=== PATIENT | male | born 1970 | race Caucasian/White ===

== ENCOUNTER 2024-09-11 19:41 | Observation (INO) | payer OTHER ==
[~2024-09-11] VITALS: Ht 172.7 cm; Wt 99.8 kg
[~2024-09-11 19:41] MED LIST: AMOCLA875; ASPI325; HYDACE5; HYDACE5 PO; NAPR500 PO; NITR.6SL SL; OXYACE5T PO
[2024-09-11] MEDS ORDERED: Morphine Sulfate 4 MG/1 ML Injection IV ONE (20:00)
[2024-09-11] MEDS ORDERED: Ondansetron HCl 2 MG / ML 2ML Vial IV ONE (20:00)
[2024-09-11 20:01] LABS: BASOPHILS PERCENT AUTO 1 % (0-2); EOSINOPHILS ABSOLUTE AUTO 0.14 K/mm3 (0.00-0.68); EOSINOPHILS PERCENT AUTO 2 % (0-6); Hematocrit 43.3 % (37.0-53.0); Hemoglobin 15.1 g/dL (13.5-17.5); IMMATURE GRAN ABSOLUTE AUTO 0.05 K/mm3 (0.00-0.10); IMMATURE GRAN PERCENT AUTO 1 % (0-1); LYMPHOCYTES ABSOLUTE AUTO 3.72 K/mm3 (0.84-5.20); LYMPHOCYTES PERCENT AUTO 41 % (21-46); MONOCYTES ABSOLUTE AUTO 0.68 K/mm3 (0.16-1.47); MONOCYTES PERCENT AUTO 7 % (4-13); Mean Corpuscular HGB 32.5 pg (26.0-34.0); Mean Corpuscular HGB Conc 34.9 g/dL (31.5-36.5); Mean Corpuscular Volume 93 fL (80-100); Mean Platelet Volume 9.6 fL (9.1-12.4); NEUTROPHILS ABSOLUTE AUTO 4.49 K/mm3 (1.96-9.15); NEUTROPHILS PERCENT AUTO 49 % (41-73); Platelet Count 346 K/mm3 (150-400); RDW Coefficient Variation 12.5 % (11.7-14.2); RDW Standard Deviation 42.7 fL (35.1-46.3); Red Blood Cell Count 4.64 M/mm3 (4.30-5.90); White Blood Cell Count 9.18 K/mm3 (4.00-11.30)
[2024-09-11 20:13] LABS: Albumin, Blood 4.1 g/dL (3.4-5.0); Albumin/Globulin Ratio 1.2 (0.8-1.8); Bilirubin, Total 0.3 mg/dL (0.1-1.0); Bun/Creatinine Ratio 20.5 (12.0-20.0); Calcium, Blood 8.6 mg/dL (8.5-10.1); Creatinine, Blood 0.83 mg/dL (0.60-1.20); Globulin, Blood 3.5 g/dL (2.2-4.0); Potassium, Blood 3.6 mmol/L (3.5-5.5); Total Protein, Blood 7.6 g/dL (6.4-8.2)
[2024-09-11 20:19] LABS: International Normalized Ratio 0.96; Prothrombin Time Results 10.3 Sec (9.7-11.5)
[2024-09-11] MEDS ORDERED: Diphth,Pertuss(Acell),Tet Vac 0.5 ML VIAL IM ONE (21:20)
[2024-09-11] MEDS ORDERED: FentaNYL Citrate 50 MCG/ML 2 ML Injection IV PRN (23:15)
[2024-09-11] MEDS ORDERED: ChlordiazePOXIDE 25 MG Cap PO PRN (23:15)
[2024-09-11] MEDS ORDERED: LORazepam 2 MG/ML 1ML Injection IV PRN (23:15)
[2024-09-11] MEDS ORDERED: Ondansetron HCl 2 MG / ML 2ML Vial IV PRN (23:15)
[2024-09-11] MEDS ORDERED: NS 1,000 ML IV ONE (23:15)
[2024-09-12] MEDS ORDERED: Thiamine HCl 100 MG in NS 50 ML IV SCH (00:04)
[2024-09-12] MEDS ORDERED: Potassium Chloride 40 MEQ in NS 250 ML IV ONE (00:05)
[2024-09-12 01:17] LABS: BASOPHILS ABSOLUTE AUTO 0.05 K/mm3 (0.00-0.23); BASOPHILS PERCENT AUTO 1 % (0-2); EOSINOPHILS ABSOLUTE AUTO 0.05 K/mm3 (0.00-0.68); EOSINOPHILS PERCENT AUTO 1 % (0-6); Hematocrit 31.3 % (37.0-53.0); Hemoglobin 10.4 g/dL (13.5-17.5); IMMATURE GRAN ABSOLUTE AUTO 0.03 K/mm3 (0.00-0.10); IMMATURE GRAN PERCENT AUTO 0 % (0-1); LYMPHOCYTES ABSOLUTE AUTO 2.23 K/mm3 (0.84-5.20); LYMPHOCYTES PERCENT AUTO 32 % (21-46); MONOCYTES ABSOLUTE AUTO 0.65 K/mm3 (0.16-1.47); MONOCYTES PERCENT AUTO 9 % (4-13); Mean Corpuscular HGB 32.8 pg (26.0-34.0); Mean Corpuscular HGB Conc 33.2 g/dL (31.5-36.5); NEUTROPHILS ABSOLUTE AUTO 4.04 K/mm3 (1.96-9.15); NEUTROPHILS PERCENT AUTO 57 % (41-73); Platelet Count 210 K/mm3 (150-400); RDW Coefficient Variation 12.5 % (11.7-14.2); RDW Standard Deviation 45.1 fL (35.1-46.3); Red Blood Cell Count 3.17 M/mm3 (4.30-5.90); White Blood Cell Count 7.05 K/mm3 (4.00-11.30)
[2024-09-12] MEDS ORDERED: CeFAZolin Sodium 2,000 MG in NS 100 ML IV ONE (01:45)
[2024-09-12 01:47] LABS: Mean Corpuscular Volume 99 fL (80-100)
[2024-09-12 01:48] LABS: Albumin, Blood 2.4 g/dL (3.4-5.0); Albumin/Globulin Ratio 1.1 (0.8-1.8); Bilirubin, Total 0.2 mg/dL (0.1-1.0); Bun/Creatinine Ratio 21.4 (12.0-20.0); Creatinine, Blood 0.47 mg/dL (0.60-1.20); Globulin, Blood 2.1 g/dL (2.2-4.0); Potassium, Blood 2.5 mmol/L (3.5-5.5)
[2024-09-12 01:49] LABS: Calcium, Blood 5.5 mg/dL (8.5-10.1); Total Protein, Blood 4.5 g/dL (6.4-8.2)
[2024-09-12] MEDS ORDERED: CALCIUM GLUC IN NACL, ISO-OSM 50 ML IV ONE (01:55)
[2024-09-12] MEDS ORDERED: Sodium Chloride 0.45% 1,000 ML IV ONE (03:20)
[2024-09-12 08:55] LABS: Calcium, Blood 8.6 mg/dL (8.5-10.1); Creatinine, Blood 0.75 mg/dL (0.60-1.20); Potassium, Blood 4.1 mmol/L (3.5-5.5)
[2024-09-12 08:59] VITALS: BP 171/92
[2024-09-12 09:00] VITALS: BP 171/92
--- NOTE | 2024-09-12 09:00 | NUR ---
PT TO ROOM 209 VIA STRETCHER FROM ED. PE WEARING GLASS SPLINT/JUAN WRAP RIGHT FA. IV INFUSING L AC 0.45NS AT 70 HR. PAIN BEGINNING TO INCREASE PER PT. ALERT AND ORIENTED X-4. INDEPENDENT WITH TRANSFER. WILL CONTINUE TO MONITOR.
[2024-09-12 11:25] VITALS: BP 137/75
--- NOTE | 2024-09-12 14:42 | NUR ---
DC INSTRUCT REVIEWED WITH PT. STATED UNDERSTANDING. PRINTED RX DISPENSED. DISCHARGED INTO SELF CARE.
== END 2024-09-12 14:54 | disposition home or self-care (01) ==
LOC: ER 19:41 → ERHOLD 19:42 → SURS 09-12 08:49
PROVIDERS: Internal Medicine; Student in an Organized Health Care Education/Training Program; ADMIT Surgery
DX: S51.811A Laceration without foreign body of right forearm, initial encounter (principal); S61.411A Laceration without foreign body of right hand, initial encounter; F10.90 Alcohol use, unspecified, uncomplicated; E87.6 Hypokalemia; E83.51 Hypocalcemia; Z72.0 Tobacco use; W25.XXXA Contact with sharp glass, initial encounter
CPT/HCPCS: 12035; 80048; 80053; 80320; 83690; 83735; 83880; 85025; 85610; 90471; 90715; 96365; 96375; 96375-59; 96376; 99285-25; G0378; J0612; J0690; J2270; J2405; J3010; J3411; J3480; J7030; J7050